=== PATIENT | female | born 1955 | race American Indian/Alaskan Native ===

== ENCOUNTER 2021-05-18 19:12 | Inpatient (IN) | payer MEDICARE ==
[2021-05-18] MEDS ORDERED: SODIUM CHLORIDE 0.9% 1000 ML 1,000 ML IV ONE ×2 (19:22→19:23)
[2021-05-18] MEDS ORDERED: ACETAMINOPHEN 500 MG TAB PO ONE (19:23)
--- NOTE | 2021-05-18 19:45 | XRay Report ---
CHEST 1 VIEW INDICATION / CLINICAL INFORMATION: Tachycardia. COMPARISON: None available. FINDINGS: SUPPORT DEVICES: None. HEART / MEDIASTINUM: No significant abnormality. LUNGS / PLEURA: No significant pulmonary or pleural abnormality. No pneumothorax. ADDITIONAL FINDINGS: No significant additional findings. IMPRESSION: 1. No acute findings. Signer Name: Saran Monson MD Signed: 05/18/2021 7:41 PM Workstation Name: [id number]
--- NOTE | 2021-05-18 19:51 | Emergency Department Report ---
HPI - General Time Seen by Provider: 05/18/21 19:19 - HPI HPI: Room 2 The patient is a 66-year-old female present with a chief complaint of weakness. The patient states for the past week she has had a cough has been nonproductive. Patient states today she just felt fatigued and EMS was called. EMS found the patient tachycardic in the 160s and believed it was PSVT. The patient was administered Versed 2 mg IV and 2 rounds of adenosine and cardioverted at 100 J by EMS prior to arrival with no change in status. In the ED the patient was found to be febrile. Patient states she has been vaccinated against Covid receiving her second [employer] vaccine well over a month ago. Patient denies dysuria nausea or vomiting ED Past Medical Hx - Past Medical History Previous Medical History?: No - Surgical History Additional Surgical History: Myomectomy - Family History Family history: no significant - Social History Smoking Status: Never Smoker Substance Use Type: Marijuana - Medications Home Medications: Home Medications Medication Instructions Recorded Confirmed Last Taken Type No Known Home Medications [No 05/18/21 05/18/21 Unknown History Reported Home Medications] ED Review of Systems ROS: Stated complaint: SVT Other details as noted in HPI Constitutional: weakness Eyes: denies: eye pain ENT: denies: throat pain Respiratory: cough Cardiovascular: denies: chest pain Endocrine: no symptoms reported Gastrointestinal: denies: abdominal pain, nausea, vomiting Genitourinary: denies: dysuria Musculoskeletal: denies: back pain Neurological: denies: headache Physical Exam - Physical Exam Physical Exam: GENERAL: The patient is well-developed well-nourished female lying on stretcher appearing fatigued but in no acute distress. [] HEENT: Normocephalic. Atraumatic. Extraocular motions are intact. Patient has moist mucous membranes. NECK: Supple. Trachea mid CHEST/LUNGS: Clear to auscultation. There is no respiratory distress noted. HEART/CARDIOVASCULAR: Regular. There is tachycardia. There is no gallop rub or murmur. ABDOMEN: Abdomen is soft, nontender. Patient has normal bowel sounds. There is no abdominal distention. SKIN: There is no rash. There is no edema. There is no diaphoresis. NEURO: The patient is awake, alert, and oriented. The patient is cooperative. The patient has no focal neurologic deficits. The patient has normal speech. GCS MUSCULOSKELETAL: There is no evidence of acute injury. ED Medical Decision Making - Lab Data Result diagrams: 05/18/21 19:37 05/18/21 19:37 Laboratory Tests 05/18/21 05/18/21 05/18/21 19:37 19:37 19:37 WBC 13.7 H RBC 5.23 H Hgb 12.3 Hct 38.9 MCV 75 L MCH 23 L MCHC 32 RDW 18.8 H Plt Count 238 Seg Neutrophils % Car Cooper PT 14.1 INR 0.98 Sodium 139 Potassium 3.7 Chloride 102.7 Carbon Dioxide 19 L Anion Gap 21 BUN 10 Creatinine 0.9 Estimated GFR > 60 BUN/Creatinine Ratio 11 Glucose 123 H Lactic Acid Calcium 8.5 Magnesium Total Creatine Kinase 101 CK-MB (CK-2) 1.4 CK-MB (CK-2) Rel Index 1.3 Troponin T 0.026 NT-Pro-B Natriuret Pep 65.93 TSH Free T4 05/18/21 05/18/21 05/18/21 19:37 19:37 19:37 WBC RBC Hgb Hct MCV MCH MCHC RDW Plt Count Seg Neutrophils % PT INR Sodium Potassium Chloride Carbon Dioxide Anion Gap BUN Creatinine Estimated GFR BUN/Creatinine Ratio Glucose Lactic Acid 3.00 H* Calcium Magnesium 1.50 L Total Creatine Kinase CK-MB (CK-2) CK-MB (CK-2) Rel Index Troponin T NT-Pro-B Natriuret Pep TSH 2.130 Free T4 1.39 - EKG Data -: EKG Interpreted by Me EKG shows normal: sinus rhythm Rate: tachycardia (155 bpm) - EKG Data When compared to previous EKG there are: previous EKG unavailable Interpretation: other (No ischemic changes seen) - Radiology Data Radiology results: report reviewed (Chest x-ray), image reviewed (Chest x-ray) interpreted by me: Chest [id number] left lower lobe atelectasis. No pneumothorax [facility] [address] [place] [address] XRay Report Signed Patient: CHRISTIANO SALEH MR#: [id number] 07 : 1955 Acct:[id number] Age/Sex: 66 / F ADM Date: 05/18/21 Loc: ED Attending Dr: Ordering Physician: PRATIMA JEFF MD Date of Service: 05/18/21 Procedure(s): XR chest 1V ap Accession Number(s): [id number] cc: PRATIMA JEFF MD Fluoro Time In Minutes: CHEST 1 VIEW INDICATION / CLINICAL INFORMATION: Tachycardia. COMPARI SON: None available. FINDINGS: SUPPORT DEVICES: None. HEART / MEDIASTINUM: No significant abnormality. LUNGS / PLEURA: No significant pulmonary or pleural abnormality. No pneumothorax. ADDITIONAL FINDINGS: No significant additional findings. IMPRESSION: 1. No acute findings. Signer Name: Saran Monson MD Signed: 05/18/2021 7:41 PM Workstation Name: [id number] Transcribed By: SB Dictated By: SARAN MONSON MD Electronically Authenticated By: SARAN MONSON MD Signed Date/Time: 05/18/211940 DD/ 40 TD/TT: - Differential Diagnosis Pneumonia, bronchitis, COVID-19, UTI, sepsis Critical care attestation.: If time is entered above; I have spent that time in minutes in the direct care of this critically ill patient, excluding procedure time. ED Disposition Clinical Impression: Sepsis, Cough Disposition: ADMITTED INPATIENT Is pt being admited?: Yes Does the pt Need Aspirin: No Condition: Fair Time of Disposition: 21:24 (Hospitalist notified (Dr. Freeman))
[2021-05-18 20:16] LABS: Hematocrit 38.9 % (30.3-42.9); Hemoglobin 12.3 gm/dl (10.1-14.3); Mean Corpuscular HGB Conc 32 % (30-34); Mean Corpuscular Volume 75 fl (79-97); Platelet Count 238 K/mm3 (140-440); Red Blood Count 5.23 M/mm3 (3.65-5.03); Red Cell Distribution Width 18.8 % (13.2-15.2)
[2021-05-18 20:29] LABS: INR 0.98 (0.87-1.13)
[2021-05-18 20:38] LABS: BUN/Creatinine Ratio 11; Blood Urea Nitrogen 10 mg/dL (7-17); Calcium 8.5 mg/dL (8.4-10.2); Hemolysis Index 41
[2021-05-18 20:50] LABS: Free T4 (Free Thyroxine) 1.39 ng/dL (0.76-1.46)
[2021-05-18 21:06] LABS: Creatine Kinase MB 1.4 ng/mL (0.0-4.0)
[2021-05-18] MEDS ORDERED: cefTRIAXone/NS 1 GM/50 ML 1 GM/50 ML BAG IV ONE (21:23)
[2021-05-18] MEDS ORDERED: AZITHROMYCIN/NS 500 MG/250 ML 500 MG/250 ML BAG IV ONE (21:23)
[2021-05-18] MEDS ORDERED: ONDANSETRON 4 MG/2 ML INJ IV PRN (21:45)
[2021-05-18] MEDS ORDERED: HYDROmorphone 1 MG/1 ML INJ IV PRN (21:45)
[2021-05-18] MEDS ORDERED: MORPHINE 2 MG/1 ML INJ IV PRN (21:45)
[2021-05-18] MEDS ORDERED: ALBUTEROL 2.5 MG/3 ML NEBU IH PRN (21:45)
[2021-05-18] MEDS ORDERED: ACETAMINOPHEN 325 MG TAB PO PRN (21:45)
--- NOTE | 2021-05-18 21:52 | History and Physical Report ---
History of Present Illness Date of examination: 05/18/21 Date of admission: 05/18/21 Chief complaint: Weakness Fever History of present illness: 66-year-old female present with a chief complaint of weakness. The patient states for the past week she has had a cough has been nonproductive. Patient states today she just felt fatigued and EMS was called. EMS found the patient tachycardic in the 160s and believed it was PSVT. The patient was administered Versed 2 mg IV and 2 rounds of adenosine and cardioverted at 100 J by EMS prior to arrival with no change in status. In the ED the patient was found to be febrile. Patient states she has been vaccinated against Covid receiving her second [employer] vaccine well over a month ago. Patient denies dysuria nausea or vomiting In the emergency room patient is found to have fever temperature is 100.9, WBC 13.7, Chest [id number] left lower lobe atelectasis. No pneumothorax. Past History Past Medical History: other (SVT) Past Surgical History: Other (Myomectomy) Social history: other (Never a smoker) Family history: no significant family history Medications and Allergies Allergies Allergy/AdvReac Type Severity Reaction Status Date / Time No Known Allergies Allergy Verified 05/18/21 19:40 Home Medications Medication Instructions Recorded Confirmed Last Taken Type No Known Home Medications [No 05/18/21 05/18/21 Unknown History Reported Home Medications] Active Meds: Active Medications Acetaminophen (Acetaminophen 325 Mg Tab) 650 mg PO Q4H PRN PRN Reason: Pain MILD(1-3)/Fever >100.5/SHELBY Albuterol (Albuterol 2.5 Mg/3 Ml Nebu) 2.5 mg IH Q3HRT PRN PRN Reason: Shortness Of Breath Albuterol/Ipratropium (Ipratropium/Albuterol Sulfate 3 Ml Ampul.Neb) 1 ampul IH Q6HRT LETY Famotidine (Famotidine 20 Mg Tab) 20 mg PO BID LETY Azithromycin (Zithromax/Ns) 500 mg in 250 mls @ 250 mls/hr IV ONCE ONE; Protocol Stop: 05/18/21 22:22 Ceftriaxone Sodium (Rocephin/Ns 1 Gm/50 Ml) 1 gm in 50 mls @ 100 mls/hr IV ONCE ONE; Protocol Stop: 05/18/21 21:52 Dextrose/Sodium Chloride (D5/0.45ns) 1,000 mls @ 100 mls/hr IV DIRECT LETY Ondansetron HCl (Ondansetron 4 Mg/2 Ml Inj) 4 mg IV Q8H PRN PRN Reason: Nausea And Vomiting Sodium Chloride (Sodium Chloride 0.9% 10 Ml Flush Syringe) 10 ml IV BID LETY Sodium Chloride (Sodium Chloride 0.9% 10 Ml Flush Syringe) 10 ml IV PRN PRN PRN Reason: LINE FLUSH Review of Systems Constitutional: fever, weakness, malaise Exam - Constitutional Vitals: Temp Pulse Resp BP Pulse Ox 100.9 F H 125 H 20 109/68 98 05/18/21 20:50 05/18/21 21:12 05/18/21 21:12 05/18/21 21:12 05/18/21 21:12 General appearance: Present: no acute distress, well-nourished - EENT Eyes: Present: PERRL ENT: hearing intact, clear oral mucosa - Neck Neck: Present: supple, normal ROM - Respiratory Respiratory effort: normal Respiratory: bilateral: CTA - Cardiovascular Heart Sounds: Present: S1 & S2. Absent: rub, click - Extremities Extremities: pulses symmetrical, No edema Peripheral Pulses: within normal limits - Abdominal General gastrointestinal: Present: soft, non-tender, non-distended, normal bowel sounds Female genitourinary: Present: normal - Integumentary Integumentary: Present: clear, warm, dry - Musculoskeletal Musculoskeletal: gait normal, strength equal bilaterally - Psychiatric Psychiatric: appropriate mood/affect, intact judgment & insight - Neurologic Neurologic: CNII-XII intact, moves all extremities HEART Score - HEART Score Troponin: Troponin T 0.026 ng/mL (0.00-0.029) 05/18/21 19:37 Results - Labs CBC & Chem 7: 05/18/21 19:37 05/18/21 19:37 Labs: Laboratory Last Values WBC 13.7 K/mm3 (4.5-11.0) H 05/18/21 19:37 RBC 5.23 M/mm3 (3.65-5.03) H 05/18/21 19:37 Hgb 12.3 gm/dl (10.1-14.3) 05/18/21 19:37 Hct 38.9 % (30.3-42.9) 05/18/21 19:37 MCV 75 fl (79-97) L 05/18/21 19:37 MCH 23 pg (28-32) L 05/18/21 19:37 MCHC 32 % (30-34) 05/18/21 19:37 RDW 18.8 % (13.2-15.2) H 05/18/21 19:37 Plt Count 238 K/mm3 (140-440) 05/18/21 19:37 Seg Neutrophils % Air Deodorizer Servicer 05/18/21 19:37 PT 14.1 Sec. (12.2-14.9) 05/18/21 19:37 INR 0.98 (0.87-1.13) 05/18/21 19:37 Sodium 139 mmol/L (137-145) 05/18/21 19:37 Potassium 3.7 mmol/L (3.6-5.0) 05/18/21 19:37 Chloride 102.7 mmol/L (98-107) 05/18/21 19:37 Carbon Dioxide 19 mmol/L (22-30) L 05/18/21 19:37 Anion Gap 21 mmol/L 05/18/21 19:37 BUN 10 mg/dL (7-17) 05/18/21 19:37 Creatinine 0.9 mg/dL (0.6-1.2) 05/18/21 19:37 Estimated GFR > 60 ml/min 05/18/21 19:37 BUN/Creatinine Ratio 11 % 05/18/21 19:37 Glucose 123 mg/dL (65-100) H 05/18/21 19:37 Lactic Acid 3.00 mmol/L (0.7-2.0) H* 05/18/21 19:37 Calcium 8.5 mg/dL (8.4-10.2) 05/18/21 19:37 Magnesium 1.50 mg/dL (1.7-2.3) L 05/18/21 19:37 Total Creatine Kinase 101 units/L (30-135) 05/18/21 19:37 CK-MB (CK-2) 1.4 ng/mL (0.0-4.0) 05/18/21 19:37 CK-MB (CK-2) Rel Index 1.3 (0-4) 05/18/21 19:37 Troponin T 0.026 ng/mL (0.00-0.029) 05/18/21 19:37 NT-Pro-B Natriuret Pep 65.93 pg/mL (0-900) 05/18/21 19:37 TSH 2.130 mlU/mL (0.270-4.200) 05/18/21 19:37 Free T4 1.39 ng/dL (0.76-1.46) 05/18/21 19:37 - Imaging and Cardiology Chest x-ray: report reviewed Assessment and Plan VTE prophylaxis?: Chemical Plan of care discussed with patient/family: Yes - Patient Problems (1) Sepsis Current Visit: Yes Status: Acute Plan to address problem: Admit the patient to the medical floor. D5 half-normal saline at the rate of 100 cc/h. Rocephin 2 g IV daily. Zithromax 500 mg p.o. daily. Blood cultures sputum culture urine culture. Recheck CBC BMP in the morning. Recheck lactic acid in 4 hours (2) Pneumonia Current Visit: Yes Status: Acute Plan to address problem: Rocephin 2 g IV daily. Zithromax 500 mg p.o. daily. Blood cultures sputum culture urine culture. Recheck CBC BMP in the morning. Recheck lactic acid in 4 hours (3) Cough Current Visit: Yes Status: Acute Plan to address problem: Robitussin-DM 10 mL p.o. every 6 hours as needed. DuoNeb by nebulizer every 4 hours (4) DVT prophylaxis Current Visit: Yes Status: Acute Plan to address problem: Heparin 5000 units subcu every 12 hours for DVT prophylaxis. Pepcid 20 mg p.o. twice daily for GI prophylaxis. Patient is a full code
[2021-05-18 22:30] LABS: Bacteria,Urine 1+ /HPF (Negative); Bilirubin,Urine NEG (Negative); Blood,Urine MOD (Negative); Color,Urine Red (Yellow); Mucus,Urine FEW /HPF; Urobilinogen,Urine < 2.0 mg/dL (<2.0)
[2021-05-18 22:35] LABS: RBC,Urine > 182.0 /HPF (0.0-6.0)
[2021-05-18] MEDS: FAMOTIDINE 20 MG TAB PO SCH (22:44)
[2021-05-18] MEDS: HEPARIN 5,000 UNIT/1 ML VIAL SUB-Q SCH (22:44)
[2021-05-18 23:35] LABS: Basophils % (Manual) 0 % (0.0-1.8); Total Cells Counted 100
[2021-05-18 23:36] LABS: Anisocytosis 1+; Platelet Estimate Consistent w Auto
[2021-05-18] MEDS: D5W/0.45% NACL 1,000 ML IV SCH (23:51)
[2021-05-19] MEDS: IPRATROPIUM/ALBUTEROL SULFATE 3 ML AMPUL.NEB IH SCH ×3 (03:27→15:27)
[2021-05-19 05:10] LABS: BUN/Creatinine Ratio 12; Blood Urea Nitrogen 12 mg/dL (7-17); Calcium 8.1 mg/dL (8.4-10.2); Hemolysis Index 1
[2021-05-19 05:52] LABS: Hematocrit 33.9 % (30.3-42.9); Hemoglobin 10.5 gm/dl (10.1-14.3); Mean Corpuscular HGB Conc 31 % (30-34); Mean Corpuscular Volume 76 fl (79-97); Platelet Count 203 K/mm3 (140-440); Red Blood Count 4.49 M/mm3 (3.65-5.03); Red Cell Distribution Width 18.9 % (13.2-15.2)
[2021-05-19] MEDS ORDERED: POTASSIUM CHLORIDE ER 20 MEQ TAB PO ONE (06:01)
[2021-05-19 07:02] LABS: Band Neutrophils # (Manual) 0.7 K/mm3; Basophils % (Manual) 0.5 % (0.0-1.8); Eosinophils % (Manual) 0.5 % (0.0-4.3); Monocytes % (Manual) 2.5 % (0.0-7.3); Total Cells Counted 200
[2021-05-19 07:04] LABS: Anisocytosis 1+; Platelet Estimate Consistent w Auto
[2021-05-19] MEDS: FAMOTIDINE 20 MG TAB PO SCH ×2 (09:17→22:03)
[2021-05-19] MEDS ORDERED: AZITHROMYCIN 250 MG TAB PO SCH (10:00)
[2021-05-19] MEDS ORDERED: cefTRIAXone/NS 2 GM/100 ML 2 GM/100 ML BAG IV SCH (10:00)
--- NOTE | 2021-05-19 10:29 | Progress Note ---
Assessment and Plan Assessment and plan: #Sepsis secondary to acute cystitis with hematuria #Gram negative anju bacteremia #Leukocytosisworsening #Lactic acidosis Urinalysis revealing moderate leukocyte esterase, WBC 137, RBC >182, bacteria 1+ WBC 13.7--> 23.3 Lactic acid 3.0. Pending repeat. Pending urine culture and blood cultures Status post IV fluid resuscitation in ED with 2 L normal saline Discontinued azithromycin 500 mg daily and ceftriaxone 2 g daily; starting cefepime 1g every 8 hours for increased antibiotic coverage in the setting of worsenig leukocytosis Infectious disease consulted; pending recs #Abnormal uterine bleeding - patient endorsing vaginal bleeding over the last 3 years despite being postmenopausal - counseled patient about following up with Gynecology upon discharge #Obesity #Weight loss counseling #Exercise counseling - counseled patient about the importance of dietary changes, weight loss, and incorporating exercise - Time: +15 min #Advanced care planning -Disease education conducted, care plan discussed, diagnoses discussed, prognosis discussed, and patient acknowledges understanding with care plan -Time: +30 min Disposition Plan: Continue medical management Total Time Spent with Patient (Minutes): 30 minutes History Interval history: No acute events overnight. Hospitalist Physical - Constitutional Vitals: Temp Pulse Resp BP Pulse Ox 100.9 F H 116 H 20 103/59 97 05/18/21 20:50 05/18/21 22:45 05/19/21 01:13 05/18/21 22:45 05/19/21 01:13 General appearance: Present: no acute distress, well-nourished, obese - EENT Eyes: Present: PERRL, EOM intact ENT: hearing intact, clear oral mucosa, dentition normal - Neck Neck: Present: supple, normal ROM - Respiratory Respiratory effort: normal Respiratory: bilateral: CTA - Cardiovascular Rhythm: regular Heart Sounds: Present: S1 & S2 - Extremities Extremities: no ischemia, pulses intact, pulses symmetrical, No edema, normal temperature, normal color Peripheral Pulses: within normal limits - Abdominal General gastrointestinal: soft, non-tender, non-distended, normal bowel sounds - Integumentary Integumentary: Present: clear, warm, dry - Psychiatric Psychiatric: appropriate mood/affect, intact judgment & insight, memory intact, cooperative - Neurologic Neurologic: CNII-XII intact, moves all extremities - Allied Health Allied health notes reviewed: nursing HEART Score - HEART Score Troponin: Troponin T 0.026 ng/mL (0.00-0.029) 05/18/21 19:37 Results - Labs CBC & Chem 7: 05/19/21 04:34 05/19/21 04:34 Labs: Laboratory Last Values WBC 23.3 K/mm3 (4.5-11.0) H 05/19/21 04:34 RBC 4.49 M/mm3 (3.65-5.03) 05/19/21 04:34 Hgb 10.5 gm/dl (10.1-14.3) 05/19/21 04:34 Hct 33.9 % (30.3-42.9) 05/19/21 04:34 MCV 76 fl (79-97) L 05/19/21 04:34 MCH 24 pg (28-32) L 05/19/21 04:34 MCHC 31 % (30-34) 05/19/21 04:34 RDW 18.9 % (13.2-15.2) H 05/19/21 04:34 Plt Count 203 K/mm3 (140-440) 05/19/21 04:34 Add Manual Diff Complete 05/19/21 04:34 Total Counted 200 05/19/21 04:34 Seg Neutrophils % Wine Cellar Worker 05/19/21 04:34 Seg Neuts % (Manual) 92.0 % (40.0-70.0) H 05/19/21 04:34 Band Neutrophils % 3.0 % 05/19/21 04:34 Lymphocytes % (Manual) 1.5 % (13.4-35.0) L 05/19/21 04:34 Reactive Lymphs % (Man) 0 % 05/19/21 04:34 Monocytes % (Manual) 2.5 % (0.0-7.3) 05/19/21 04:34 Eosinophils % (Manual) 0.5 % (0.0-4.3) 05/19/21 04:34 Basophils % (Manual) 0.5 % (0.0-1.8) 05/19/21 04:34 Metamyelocytes % 0 % 05/19/21 04:34 Myelocytes % 0 % 05/19/21 04:34 Promyelocytes % 0 % 05/19/21 04:34 Blast Cells % 0 % 05/19/21 04:34 Nucleated RBC % Not Reportable 05/19/21 04:34 Seg Neutrophils # Man 21.4 K/mm3 (1.8-7.7) H 05/19/21 04:34 Band Neutrophils # 0.7 K/mm3 05/19/21 04:34 Lymphocytes # (Manual) 0.3 K/mm3 (1.2-5.4) L 05/19/21 04:34 Abs React Lymphs (Man) 0.0 K/mm3 05/19/21 04:34 Monocytes # (Manual) 0.6 K/mm3 (0.0-0.8) 05/19/21 04:34 Eosinophils # (Manual) 0.1 K/mm3 (0.0-0.4) 05/19/21 04:34 Basophils # (Manual) 0.1 K/mm3 (0.0-0.1) 05/19/21 04:34 Metamyelocytes # 0.0 K/mm3 05/19/21 04:34 Myelocytes # 0.0 K/mm3 05/19/21 04:34 Promyelocytes # 0.0 K/mm3 05/19/21 04:34 Blast Cells # 0.0 K/mm3 05/19/21 04:34 WBC Morphology Not Reportable 05/19/21 04:34 Hypersegmented Neuts Not Reportable 05/19/21 04:34 Hyposegmented Neuts Not Reportable 05/19/21 04:34 Hypogranular Neuts Not Reportable 05/19/21 04:34 Smudge Cells Not Reportable 05/19/21 04:34 Toxic Granulation Not Reportable 05/19/21 04:34 Toxic Vacuolation Not Reportable 05/19/21 04:34 Dohle Bodies Not Reportable 05/19/21 04:34 Pelger-Huet Anomaly Not Reportable 05/19/21 04:34 Mario Rods Not Reportable 05/19/21 04:34 Platelet Estimate Consistent w auto 05/19/21 04:34 Clumped Platelets Not Reportable 05/19/21 04:34 Plt Clumps, EDTA Not Reportable 05/19/21 04:34 Large Platelets Not Reportable 05/19/21 04:34 Giant Platelets Not Reportable 05/19/21 04:34 Platelet Satelliting Not Reportable 05/19/21 04:34 Plt Morphology Comment Not Reportable 05/19/21 04:34 RBC Morphology Not Reportable 05/19/21 04:34 Dimorphic RBCs Not Reportable 05/19/21 04:34 Polychromasia Not Reportable 05/19/21 04:34 Hypochromasia Not Reportable 05/19/21 04:34 Poikilocytosis Not Reportable 05/19/21 04:34 Anisocytosis 1+ 05/19/21 04:34 Microcytosis Not Reportable 05/19/21 04:34 Macrocytosis Not Reportable 05/19/21 04:34 Spherocytes Not Reportable 05/19/21 04:34 Pappenheimer Bodies Not Reportable 05/19/21 04:34 Sickle Cells Not Reportable 05/19/21 04:34 Target Cells Not Reportable 05/19/21 04:34 Tear Drop Cells Not Reportable 05/19/21 04:34 Ovalocytes Not Reportable 05/19/21 04:34 Helmet Cells Not Reportable 05/19/21 04:34 [place] Bodies Not Reportable 05/19/21 04:34 [place] Rings Not Reportable 05/19/21 04:34 [place] Cells Not Reportable 05/19/21 04:34 Bite Cells Not Reportable 05/19/21 04:34 Crenated Cell Not Reportable 05/19/21 04:34 Elliptocytes Not Reportable 05/19/21 04:34 Acanthocytes (Spur) Not Reportable 05/19/21 04:34 Rouleaux Not Reportable 05/19/21 04:34 Hemoglobin C Crystals Not Reportable 05/19/21 04:34 Schistocytes Not Reportable 05/19/21 04:34 Malaria parasites Not Reportable 05/19/21 04:34 Adam Bodies Not Reportable 05/19/21 04:34 Hem Pathologist Commnt No 05/19/21 04:34 PT 14.1 Sec. (12.2-14.9) 05/18/21 19:37 INR 0.98 (0.87-1.13) 05/18/21 19:37 Sodium 140 mmol/L (137-145) 05/19/21 04:34 Potassium 3.0 mmol/L (3.6-5.0) L 05/19/21 04:34 Chloride 104.3 mmol/L (98-107) 05/19/21 04:34 Carbon Dioxide 21 mmol/L (22-30) L 05/19/21 04:34 Anion Gap 18 mmol/L 05/19/21 04:34 BUN 12 mg/dL (7-17) 05/19/21 04:34 Creatinine 1.0 mg/dL (0.6-1.2) 05/19/21 04:34 Estimated GFR > 60 ml/min 05/19/21 04:34 BUN/Creatinine Ratio 12 % 05/19/21 04:34 Glucose 99 mg/dL (65-100) 05/19/21 04:34 Lactic Acid 3.00 mmol/L (0.7-2.0) H* 05/18/21 19:37 Calcium 8.1 mg/dL (8.4-10.2) L 05/19/21 04:34 Magnesium 1.50 mg/dL (1.7-2.3) L 05/18/21 19:37 Total Creatine Kinase 101 units/L (30-135) 05/18/21 19:37 CK-MB (CK-2) 1.4 ng/mL (0.0-4.0) 05/18/21 19:37 CK-MB (CK-2) Rel Index 1.3 (0-4) 05/18/21 19:37 Troponin T 0.026 ng/mL (0.00-0.029) 05/18/21 19:37 NT-Pro-B Natriuret Pep 65.93 pg/mL (0-900) 05/18/21 19:37 TSH 2.130 mlU/mL (0.270-4.200) 05/18/21 19:37 Free T4 1.39 ng/dL (0.76-1.46) 05/18/21 19:37 Urine Color Red (Yellow) 05/18/21 21:53 Urine Turbidity Cloudy (Clear) 05/18/21 21:53 Urine pH 5.0 (5.0-7.0) 05/18/21 21:53 Ur Specific [place] 1.015 (1.003-1.030) 05/18/21 21:53 Urine Protein 100 mg/dl mg/dL (Negative) 05/18/21 21:53 Urine Glucose (UA) Neg mg/dL (Negative) 05/18/21 21:53 Urine Ketones Neg mg/dL (Negative) 05/18/21 21:53 Urine Blood Mod (Negative) 05/18/21 21:53 Urine Nitrite Neg (Negative) 05/18/21 21:53 Urine Bilirubin Neg (Negative) 05/18/21 21:53 Urine Urobilinogen < 2.0 mg/dL (<2.0) 05/18/21 21:53 Ur Leukocyte Esterase Mod (Negative) 05/18/21 21:53 Urine WBC (Auto) 137.0 /HPF (0.0-6.0) H 05/18/21 21:53 Urine RBC (Auto) > 182.0 /HPF (0.0-6.0) 05/18/21 21:53 U Epithel Cells (Auto) 1.0 /HPF (0-13.0) 05/18/21 21:53 Urine Bacteria (Auto) 1+ /HPF (Negative) 05/18/21 21:53 Urine Mucus Few /HPF 05/18/21 21:53 Microbiology: Microbiology 05/18/21 20:29 Peripheral/Venous Blood Culture - Preliminary Culture in Progress 05/18/21 19:37 Peripheral/Venous Blood Culture - Preliminary Culture in Progress Pollard/IV: Voiding Method Toilet Active Medications - Current Medications Current Medications: Generic Name Dose Route Start Last Admin Trade Name Freq PRN Reason Stop Dose Admin Acetaminophen 650 mg 05/18/21 21:45 Acetaminophen 325 Mg Tab PO Q4H PRN Pain MILD(1-3)/Fever >100.5/SHELBY Albuterol 2.5 mg 05/18/21 21:45 Albuterol 2.5 Mg/3 Ml Nebu IH Q3HRT PRN Shortness Of Breath Albuterol/Ipratropium 1 ampul 05/19/21 03:00 Ipratropium/Albuterol Sulfate 3 Ml Ampul.Neb IH Q6HRT LETY Azithromycin 500 mg 05/19/21 10:00 05/19/21 09:17 Azithromycin 250 Mg Tab PO 500 mg QDAY LETY Administration Protocol Famotidine 20 mg 05/18/21 22:00 05/19/21 09:17 Famotidine 20 Mg Tab PO 20 mg BID LETY Administration Heparin Sodium (Porcine) 5,000 unit 05/18/21 22:00 05/18/21 22:44 Heparin 5,000 Unit/1 Ml Vial SUB-Q 5,000 unit Q12HR LETY Administration Hydromorphone HCl 0.5 mg 05/18/21 21:45 Hydromorphone 1 Mg/1 Ml Inj IV Q3H PRN Pain , Severe (7-10) Dextrose/Sodium Chloride 1,000 mls @ 100 mls/hr 05/18/21 22:00 05/18/21 23:51 D5/0.45ns IV 100 mls/hr DIRECT LETY Administration Ceftriaxone Sodium 2 gm in 100 mls @ 200 mls/hr 05/19/21 10:00 05/19/21 09:17 Rocephin/Ns 2 Gm/100 Ml IV 200 mls/hr Q24H LETY Administration Protocol Morphine Sulfate 2 mg 05/18/21 21:45 Morphine 2 Mg/1 Ml Inj IV Q4H PRN Pain, Moderate (4-6) Ondansetron HCl 4 mg 05/18/21 21:45 Ondansetron 4 Mg/2 Ml Inj IV Q8H PRN Nausea And Vomiting Sodium Chloride 10 ml 05/18/21 22:00 05/19/21 09:18 Sodium Chloride 0.9% 10 Ml Flush Syringe IV 10 ml BID LETY Administration Sodium Chloride 10 ml 05/18/21 21:45 Sodium Chloride 0.9% 10 Ml Flush Syringe IV PRN PRN LINE FLUSH
[2021-05-19] MEDS: HEPARIN 5,000 UNIT/1 ML VIAL SUB-Q SCH ×2 (12:33→22:04)
[2021-05-19] MEDS: D5W/0.45% NACL 1,000 ML IV SCH (15:01)
[2021-05-20] MEDS: D5W/0.45% NACL 1,000 ML IV SCH (02:38)
[2021-05-20 07:10] LABS: Basophils % (Auto) 0.4 % (0.0-1.8); Eosinophils # (Auto) 0.1 K/mm3 (0.0-0.4); Eosinophils % (Auto) 0.9 % (0.0-4.3); Hematocrit 30.3 % (30.3-42.9); Hemoglobin 9.5 gm/dl (10.1-14.3); Lymphocytes # (Auto) 0.6 K/mm3 (1.2-5.4); Lymphocytes % (Auto) 5.6 % (13.4-35.0); Mean Corpuscular HGB Conc 32 % (30-34); Mean Corpuscular Volume 75 fl (79-97); Monocytes # (Auto) 1.2 K/mm3 (0.0-0.8); Monocytes % (Auto) 10.3 % (0.0-7.3); Platelet Count 163 K/mm3 (140-440); Red Blood Count 4.05 M/mm3 (3.65-5.03); Red Cell Distribution Width 18.9 % (13.2-15.2)
[2021-05-20 07:27] LABS: BUN/Creatinine Ratio 9; Blood Urea Nitrogen 7 mg/dL (7-17); Calcium 7.9 mg/dL (8.4-10.2); Hemolysis Index 7
[2021-05-20] MEDS ORDERED: POTASSIUM CHLORIDE ER 20 MEQ TAB PO NR ×2 (08:30→12:30)
[2021-05-20] MEDS: POTASSIUM CHLORIDE 10 MEQ 10 MEQ/100 ML BAG IV SCH ×4 (08:59→13:34)
[2021-05-20] MEDS: HEPARIN 5,000 UNIT/1 ML VIAL SUB-Q SCH ×2 (09:05→21:43)
[2021-05-20] MEDS: FAMOTIDINE 20 MG TAB PO SCH ×2 (09:05→21:43)
[2021-05-20] MEDS: CEFEPIME/NS 1 GM/100 ML 1 GM/100 ML BAG IV SCH ×2 (09:07→16:51)
[2021-05-20] MEDS: IPRATROPIUM/ALBUTEROL SULFATE 3 ML AMPUL.NEB IH SCH ×4 (09:48→20:12)
--- NOTE | 2021-05-20 10:52 | Electrocardiograph Report ---
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
--- NOTE | 2021-05-20 11:18 | Progress Note ---
Assessment and Plan Assessment and plan: #Sepsis secondary to acute cystitis with hematuria #Gram negative anju bacteremia #Leukocytosisimproving #Lactic acidosis Urinalysis revealing moderate leukocyte esterase, WBC 137, RBC >182, bacteria 1+ WBC 13.7--> 23.3--> 11.4 Lactic acid 3.0. Pending repeat. Pending urine culture and blood cultures Status post IV fluid resuscitation in ED with 2 L normal saline Discontinued azithromycin 500 mg daily and ceftriaxone 2 g daily; starting cefepime 1g every 8 hours for increased antibiotic coverage in the setting of worsenig leukocytosis Infectious disease consulted; pending recs #Abnormal uterine bleeding - patient endorsing vaginal bleeding over the last 3 years despite being postmenopausal - counseled patient about following up with Gynecology upon discharge #Obesity #Weight loss counseling #Exercise counseling - counseled patient about the importance of dietary changes, weight loss, and incorporating exercise - Time: +15 min #Advanced care planning -Disease education conducted, care plan discussed, diagnoses discussed, prognosis discussed, and patient acknowledges understanding with care plan -Time: +30 min #Discharge planning - Patient is pending improvement in vital status and final antibiotic choice - Case management has been made aware. - Discharge is tentatively 24-48 hours Disposition Plan: Continue medical management Total Time Spent with Patient (Minutes): 30 minutes History Interval history: Patient was febrile to 100.5 last night. Hospitalist Physical - Constitutional Vitals: Temp Pulse Resp BP Pulse Ox 100.5 F H 102 H 20 107/58 97 05/20/21 04:30 05/20/21 10:24 05/20/21 10:24 05/20/21 04:30 05/20/21 10:00 General appearance: Present: no acute distress, well-nourished, obese - EENT Eyes: Present: PERRL, EOM intact ENT: hearing intact, clear oral mucosa, dentition normal - Neck Neck: Present: supple, normal ROM - Respiratory Respiratory effort: normal Respiratory: bilateral: CTA - Cardiovascular Rhythm: regular Heart Sounds: Present: S1 & S2 - Extremities Extremities: no ischemia, pulses intact, pulses symmetrical, No edema, normal temperature, normal color, Full ROM Peripheral Pulses: within normal limits - Abdominal General gastrointestinal: soft, non-tender, non-distended, normal bowel sounds - Integumentary Integumentary: Present: clear, warm, dry - Psychiatric Psychiatric: appropriate mood/affect, intact judgment & insight, memory intact, cooperative - Neurologic Neurologic: CNII-XII intact, moves all extremities - Allied Health Allied health notes reviewed: nursing HEART Score - HEART Score Troponin: Troponin T 0.026 ng/mL (0.00-0.029) 05/18/21 19:37 Results - Labs CBC & Chem 7: 05/20/21 06:51 03 06:51 Labs: Laboratory Last Values WBC 11.4 K/mm3 (4.5-11.0) H 05/20/21 06:51 RBC 4.05 M/mm3 (3.65-5.03) 05/20/21 06:51 Hgb 9.5 gm/dl (10.1-14.3) L 05/20/21 06:51 Hct 30.3 % (30.3-42.9) 05/20/21 06:51 MCV 75 fl (79-97) L 05/20/21 06:51 MCH 24 pg (28-32) L 05/20/21 06:51 MCHC 32 % (30-34) 05/20/21 06:51 RDW 18.9 % (13.2-15.2) H 05/20/21 06:51 Plt Count 163 K/mm3 (140-440) 05/20/21 06:51 Lymph % (Auto) 5.6 % (13.4-35.0) L 05/20/21 06:51 [place] % (Auto) 10.3 % (0.0-7.3) H 05/20/21 06:51 Eos % (Auto) 0.9 % (0.0-4.3) 05/20/21 06:51 Baso % (Auto) 0.4 % (0.0-1.8) 05/20/21 06:51 Lymph # (Auto) 0.6 K/mm3 (1.2-5.4) L 05/20/21 06:51 [place] # (Auto) 1.2 K/mm3 (0.0-0.8) H 05/20/21 06:51 Eos # (Auto) 0.1 K/mm3 (0.0-0.4) 05/20/21 06:51 Baso # (Auto) 0.0 K/mm3 (0.0-0.1) 05/20/21 06:51 Add Manual Diff Complete 05/19/21 04:34 Total Counted 200 05/19/21 04:34 Seg Neutrophils % 82.8 % (40.0-70.0) H 05/20/21 06:51 Seg Neuts % (Manual) 92.0 % (40.0-70.0) H 05/19/21 04:34 Band Neutrophils % 3.0 % 05/19/21 04:34 Lymphocytes % (Manual) 1.5 % (13.4-35.0) L 05/19/21 04:34 Reactive Lymphs % (Man) 0 % 05/19/21 04:34 Monocytes % (Manual) 2.5 % (0.0-7.3) 05/19/21 04:34 Eosinophils % (Manual) 0.5 % (0.0-4.3) 05/19/21 04:34 Basophils % (Manual) 0.5 % (0.0-1.8) 05/19/21 04:34 Metamyelocytes % 0 % 05/19/21 04:34 Myelocytes % 0 % 05/19/21 04:34 Promyelocytes % 0 % 05/19/21 04:34 Blast Cells % 0 % 05/19/21 04:34 Nucleated RBC % Not Reportable 05/19/21 04:34 Seg Neutrophils # 9.5 K/mm3 (1.8-7.7) H 05/20/21 06:51 Seg Neutrophils # Man 21.4 K/mm3 (1.8-7.7) H 05/19/21 04:34 Band Neutrophils # 0.7 K/mm3 05/19/21 04:34 Lymphocytes # (Manual) 0.3 K/mm3 (1.2-5.4) L 05/19/21 04:34 Abs React Lymphs (Man) 0.0 K/mm3 05/19/21 04:34 Monocytes # (Manual) 0.6 K/mm3 (0.0-0.8) 05/19/21 04:34 Eosinophils # (Manual) 0.1 K/mm3 (0.0-0.4) 05/19/21 04:34 Basophils # (Manual) 0.1 K/mm3 (0.0-0.1) 05/19/21 04:34 Metamyelocytes # 0.0 K/mm3 05/19/21 04:34 Myelocytes # 0.0 K/mm3 05/19/21 04:34 Promyelocytes # 0.0 K/mm3 05/19/21 04:34 Blast Cells # 0.0 K/mm3 05/19/21 04:34 WBC Morphology Not Reportable 05/19/21 04:34 Hypersegmented Neuts Not Reportable 05/19/21 04:34 Hyposegmented Neuts Not Reportable 05/19/21 04:34 Hypogranular Neuts Not Reportable 05/19/21 04:34 Smudge Cells Not Reportable 05/19/21 04:34 Toxic Granulation Not Reportable 05/19/21 04:34 Toxic Vacuolation Not Reportable 05/19/21 04:34 Dohle Bodies Not Reportable 05/19/21 04:34 Pelger-Huet Anomaly Not Reportable 05/19/21 04:34 Mario Rods Not Reportable 05/19/21 04:34 Platelet Estimate Consistent w auto 05/19/21 04:34 Clumped Platelets Not Reportable 05/19/21 04:34 Plt Clumps, EDTA Not Reportable 05/19/21 04:34 Large Platelets Not Reportable 05/19/21 04:34 Giant Platelets Not Reportable 05/19/21 04:34 Platelet Satelliting Not Reportable 05/19/21 04:34 Plt Morphology Comment Not Reportable 05/19/21 04:34 RBC Morphology Not Reportable 05/19/21 04:34 Dimorphic RBCs Not Reportable 05/19/21 04:34 Polychromasia Not Reportable 05/19/21 04:34 Hypochromasia Not Reportable 05/19/21 04:34 Poikilocytosis Not Reportable 05/19/21 04:34 Anisocytosis 1+ 05/19/21 04:34 Microcytosis Not Reportable 05/19/21 04:34 Macrocytosis Not Reportable 05/19/21 04:34 Spherocytes Not Reportable 05/19/21 04:34 Pappenheimer Bodies Not Reportable 05/19/21 04:34 Sickle Cells Not Reportable 05/19/21 04:34 Target Cells Not Reportable 05/19/21 04:34 Tear Drop Cells Not Reportable 05/19/21 04:34 Ovalocytes Not Reportable 05/19/21 04:34 Helmet Cells Not Reportable 05/19/21 04:34 [place] Bodies Not Reportable 05/19/21 04:34 [place] Rings Not Reportable 05/19/21 04:34 [place] Cells Not Reportable 05/19/21 04:34 Bite Cells Not Reportable 05/19/21 04:34 Crenated Cell Not Reportable 05/19/21 04:34 Elliptocytes Not Reportable 05/19/21 04:34 Acanthocytes (Spur) Not Reportable 05/19/21 04:34 Rouleaux Not Reportable 05/19/21 04:34 Hemoglobin C Crystals Not Reportable 05/19/21 04:34 Schistocytes Not Reportable 05/19/21 04:34 Malaria parasites Not Reportable 05/19/21 04:34 Adam Bodies Not Reportable 05/19/21 04:34 Hem Pathologist Commnt No 05/19/21 04:34 PT 14.1 Sec. (12.2-14.9) 05/18/21 19:37 INR 0.98 (0.87-1.13) 05/18/21 19:37 Sodium 140 mmol/L (137-145) 05/20/21 06:51 Potassium 2.9 mmol/L (3.6-5.0) L* 05/20/21 06:51 Chloride 106.5 mmol/L (98-107) 05/20/21 06:51 Carbon Dioxide 22 mmol/L (22-30) 05/20/21 06:51 Anion Gap 14 mmol/L 05/20/21 06:51 BUN 7 mg/dL (7-17) 05/20/21 06:51 Creatinine 0.8 mg/dL (0.6-1.2) 05/20/21 06:51 Estimated GFR > 60 ml/min 05/20/21 06:51 BUN/Creatinine Ratio 9 % 05/20/21 06:51 Glucose 136 mg/dL (65-100) H 05/20/21 06:51 Lactic Acid 3.00 mmol/L (0.7-2.0) H* 05/18/21 19:37 Calcium 7.9 mg/dL (8.4-10.2) L 05/20/21 06:51 Magnesium 1.50 mg/dL (1.7-2.3) L 05/18/21 19:37 Total Creatine Kinase 101 units/L (30-135) 05/18/21 19:37 CK-MB (CK-2) 1.4 ng/mL (0.0-4.0) 05/18/21 19:37 CK-MB (CK-2) Rel Index 1.3 (0-4) 05/18/21 19:37 Troponin T 0.026 ng/mL (0.00-0.029) 05/18/21 19:37 NT-Pro-B Natriuret Pep 65.93 pg/mL (0-900) 05/18/21 19:37 TSH 2.130 mlU/mL (0.270-4.200) 05/18/21 19:37 Free T4 1.39 ng/dL (0.76-1.46) 05/18/21 19:37 Urine Color Red (Yellow) 05/18/21 21:53 Urine Turbidity Cloudy (Clear) 05/18/21 21:53 Urine pH 5.0 (5.0-7.0) 05/18/21 21:53 Ur Specific [place] 1.015 (1.003-1.030) 05/18/21 21:53 Urine Protein 100 mg/dl mg/dL (Negative) 05/18/21 21:53 Urine Glucose (UA) Neg mg/dL (Negative) 05/18/21 21:53 Urine Ketones Neg mg/dL (Negative) 05/18/21 21:53 Urine Blood Mod (Negative) 05/18/21 21:53 Urine Nitrite Neg (Negative) 05/18/21 21:53 Urine Bilirubin Neg (Negative) 05/18/21 21:53 Urine Urobilinogen < 2.0 mg/dL (<2.0) 05/18/21 21:53 Ur Leukocyte Esterase Mod (Negative) 05/18/21 21:53 Urine WBC (Auto) 137.0 /HPF (0.0-6.0) H 05/18/21 21:53 Urine RBC (Auto) > 182.0 /HPF (0.0-6.0) 05/18/21 21:53 U Epithel Cells (Auto) 1.0 /HPF (0-13.0) 05/18/21 21:53 Urine Bacteria (Auto) 1+ /HPF (Negative) 05/18/21 21:53 Urine Mucus Few /HPF 05/18/21 21:53 Microbiology: Microbiology 05/18/21 20:29 Peripheral/Venous Blood Culture - Preliminary 05/18/21 19:37 Peripheral/Venous Blood Culture - Preliminary Pollard/IV: Voiding Method Toilet Active Medications - Current Medications Current Medications: Generic Name Dose Route Start Last Admin Trade Name Freq PRN Reason Stop Dose Admin Acetaminophen 650 mg 05/18/21 21:45 05/20/21 04:44 Acetaminophen 325 Mg Tab PO 650 mg Q4H PRN Administration Pain MILD(1-3)/Fever >100.5/SHELBY Albuterol 2.5 mg 05/18/21 21:45 Albuterol 2.5 Mg/3 Ml Nebu IH Q3HRT PRN Shortness Of Breath Albuterol/Ipratropium 1 ampul 05/19/21 03:00 05/20/21 10:24 Ipratropium/Albuterol Sulfate 3 Ml Ampul.Neb IH 1 ampul Q6HRT LETY Administration Famotidine 20 mg 05/18/21 22:00 05/20/21 09:05 Famotidine 20 Mg Tab PO 20 mg BID LETY Administration Heparin Sodium (Porcine) 5,000 unit 05/18/21 22:00 05/20/21 09:05 Heparin 5,000 Unit/1 Ml Vial SUB-Q 5,000 unit Q12HR LETY Administration Hydromorphone HCl 0.5 mg 05/18/21 21:45 Hydromorphone 1 Mg/1 Ml Inj IV Q3H PRN Pain , Severe (7-10) Cefepime HCl 1 gm in 100 mls @ 200 mls/hr 05/20/21 09:00 05/20/21 09:07 Cefepime/Ns 1 Gm/100 Ml IV 200 mls/hr Q8H LETY Administration Protocol Potassium Chloride 10 meq in 100 mls @ 100 mls/hr 05/20/21 09:00 05/20/21 10:24 Kcl 10meq/100ml IV 05/20/21 12:59 100 mls/hr Q1H LETY Administration Morphine Sulfate 2 mg 05/18/21 21:45 Morphine 2 Mg/1 Ml Inj IV Q4H PRN Pain, Moderate (4-6) Ondansetron HCl 4 mg 05/18/21 21:45 Ondansetron 4 Mg/2 Ml Inj IV Q8H PRN Nausea And Vomiting Potassium Chloride 40 meq 05/20/21 08:30 05/20/21 08:53 Potassium Chloride Er 20 Meq Tab PO 05/20/21 15:00 40 meq ONCE@0830 NR Administration Potassium Chloride 40 meq 05/20/21 12:30 Potassium Chloride Er 20 Meq Tab PO 05/20/21 15:00 ONCE@1230 NR Sodium Chloride 10 ml 05/18/21 22:00 05/20/21 09:49 Sodium Chloride 0.9% 10 Ml Flush Syringe IV 10 ml BID LETY Administration Sodium Chloride 10 ml 05/18/21 21:45 Sodium Chloride 0.9% 10 Ml Flush Syringe IV PRN PRN LINE FLUSH
--- NOTE | 2021-05-20 11:42 | Consultation ---
History of Present Illness - Reason for Consult Consult date: 05/20/21 abx management Requesting physician: KYRA FLETCHER - History of Present Illness The patient is a 66-year-old female with history of SVT was admitted to the hospital on 05/18/2021 with weakness, fever. She was also having a cough. She underwent cardioversion by EMS due to significant tachycardia/SVT. Upon admission, noted to have a fever of 103.2 F. UA showed significant pyuria, chest x-ray showed no acute findings. Blood cultures turned positive for GNR bacteremia. Infectious diseases was consulted for antibiotic management. She is currently on room air. Feeling better. She reports having hematuria as well as back spasms. Hematuria appears to be slowly improving. Review of Systems: General: fever HEENT: no new visual disturbance Respiratory: No cough, sputum, hemoptysis or shortness of breath Cardiovascular: No chest pain, syncope Gastrointestinal: No nausea, vomiting or diarrhea Genitourinary: No dysuria or hematuria Musculoskeletal: No new or worsening neck pain. Back spasms resolved Neurologic: No headaches, seizures Hematologic: No easy bruising or bleeding Endocrine: No night sweats or acute weight loss Skin: negative for rash, jaundice Psychiatric: No suicidal or homicidal ideation Past History Past Medical History: other (SVT) Past Surgical History: Other (Myomectomy) Social history: other (Never a smoker) Family history: hypertension Medications and Allergies Allergies Allergy/AdvReac Type Severity Reaction Status Date / Time No Known Allergies Allergy Verified 05/18/21 19:40 Home Medications Medication Instructions Recorded Confirmed Last Taken Type No Known Home Medications [No 05/18/21 05/18/21 Unknown History Reported Home Medications] Active Meds: Active Medications Acetaminophen (Acetaminophen 325 Mg Tab) 650 mg PO Q4H PRN PRN Reason: Pain MILD(1-3)/Fever >100.5/SHELBY Last Admin: 05/20/21 04:44 Dose: 650 mg Albuterol (Albuterol 2.5 Mg/3 Ml Nebu) 2.5 mg IH Q3HRT PRN PRN Reason: Shortness Of Breath Albuterol/Ipratropium (Ipratropium/Albuterol Sulfate 3 Ml Ampul.Neb) 1 ampul IH Q6HRT LETY Last Admin: 05/20/21 10:24 Dose: 1 ampul Famotidine (Famotidine 20 Mg Tab) 20 mg PO BID [facility] Last Admin: 05/20/21 09:05 Dose: 20 mg Heparin Sodium (Porcine) (Heparin 5,000 Unit/1 Ml Vial) 5,000 unit SUB-Q Q12HR [facility] Last Admin: 05/20/21 09:05 Dose: 5,000 unit Hydromorphone HCl (Hydromorphone 1 Mg/1 Ml Inj) 0.5 mg IV Q3H PRN PRN Reason: Pain , Severe (7-10) Cefepime HCl (Cefepime/Ns 1 Gm/100 Ml) 1 gm in 100 mls @ 200 mls/hr IV Q8H [facility]; Protocol Last Admin: 05/20/21 09:07 Dose: 200 mls/hr Potassium Chloride (Kcl 10meq/100ml) 10 meq in 100 mls @ 100 mls/hr IV Q1H [facility] Stop: 05/20/21 12:59 Last Admin: 05/20/21 10:24 Dose: 100 mls/hr Morphine Sulfate (Morphine 2 Mg/1 Ml Inj) 2 mg IV Q4H PRN PRN Reason: Pain, Moderate (4-6) Ondansetron HCl (Ondansetron 4 Mg/2 Ml Inj) 4 mg IV Q8H PRN PRN Reason: Nausea And Vomiting Potassium Chloride (Potassium Chloride Er 20 Meq Tab) 40 meq PO ONCE@0830 NR Stop: 05/20/21 15:00 Last Admin: 05/20/21 08:53 Dose: 40 meq Potassium Chloride (Potassium Chloride Er 20 Meq Tab) 40 meq PO ONCE@1230 NR Stop: 05/20/21 15:00 Sodium Chloride (Sodium Chloride 0.9% 10 Ml Flush Syringe) 10 ml IV BID [facility] Last Admin: 05/20/21 09:49 Dose: 10 ml Sodium Chloride (Sodium Chloride 0.9% 10 Ml Flush Syringe) 10 ml IV PRN PRN PRN Reason: LINE FLUSH Physical Examination - Physical Exam Narrative exam: Physical Exam: Constitutional: Alert, cooperative. No acute distress Head, Ears, Nose: Normocephalic, atraumatic. External ears, nose normal Eyes: Conjunctivae/corneas clear. No icterus. No ptosis. Neck: Supple, no meningeal signs Oral: no thrush Cardiovascular: S1, S2 + Respiratory: Good air entry, clear to auscultation bilaterally GI: Soft, non-tender; bowel sounds normal. No peritoneal signs Musculoskeletal: No pedal edema, no cyanosis. Skin: No rash or abscess Hem/Lymphatic: No palpable cervical or supraclavicular nodes. No lymphangitis Psych: Mood ok. Affect normal Neurological: Awake, alert, oriented. No gross abnormality - Constitutional Vitals: Vital Signs Temp Pulse Resp BP Pulse Ox 100.5 F H 102 H 20 107/58 97 05/20/21 04:30 05/20/21 10:24 05/20/21 10:24 05/20/21 04:30 05/20/21 10:00 Temperature -Last 24 Hours Temperature 100.5 F Temperature 100.1 F Temperature 100.5 F Temperature 99.6 F Results - Labs CBC & Chem 7: 05/20/21 06:51 05/20/21 06:51 Labs: Abnormal lab results 05/20/21 05/20/21 Range/Units 06:51 06:51 WBC 11.4 H (4.5-11.0) K/mm3 Hgb 9.5 L (10.1-14.3) gm/dl MCV 75 L (79-97) fl MCH 24 L (28-32) pg RDW 18.9 H (13.2-15.2) % Lymph % (Auto) 5.6 L (13.4-35.0) % [place] % (Auto) 10.3 H (0.0-7.3) % Lymph # (Auto) 0.6 L (1.2-5.4) K/mm3 [place] # (Auto) 1.2 H (0.0-0.8) K/mm3 Seg Neutrophils % 82.8 H (40.0-70.0) % Seg Neutrophils # 9.5 H (1.8-7.7) K/mm3 Potassium 2.9 L* (3.6-5.0) mmol/L Glucose 136 H (65-100) mg/dL Calcium 7.9 L (8.4-10.2) mg/dL - Imaging and Cardiology Chest x-ray: report reviewed, image reviewed (no pneumonia) Assessment and Plan Cultures: 05/18/2021 blood culture: GNR A/P: 66-year-old female with history of SVT was admitted to the hospital on 05/18/2021 with weakness, fever: #Sepsis, secondary to GNR bacteremia: Source is likely urinary tract infection. UA showed significant pyuria. Chest x-ray without obvious pneumonia. #Hematuria #Obesity Recs: -IV cefepime 1 g every 8 hours -Follow-up blood and urine cultures -Due to hematuria, will get CT without contrast to evaluate for renal stones/hyd ronephrosis. She did have renal stones around age 17 -Anticipate discharge on PO abx depending on cultures Haresh Tamayo MD, FACP, [facility] ([facility] O: [phone] F: [phone] C: [phone]
--- NOTE | 2021-05-20 13:31 | Cat Scan Report ---
CT ABDOMEN AND PELVIS WITHOUT IV CONTRAST INDICATION: eval for renal stones/hydronephrosis. COMPARISON: None available. TECHNIQUE: All CT scans at this facility use dose modulation, automated exposure control, iterative reconstructi on or weight based dosing, when appropriate, to reduce radiation dose to as low as reasonably achieva ble. FINDINGS: Lung Bases: No significant abnormality. Skeletal System: No acute abnormality. Arthritic changes noted at the pubic symphysis and SI joints. ABDOMEN: Liver: No significant abnormality. Gallbladder: No significant abnormality. Bile Ducts: No significant abnormality. Adrenals: No significant abnormality. Right Kidney: No significant abnormality. Left Kidney: No significant abnormality. Pancreas: Subcentimeter fat density focus in the pancreatic body on axial image 56 is likely invagina tion of peripancreatic fat. Spleen: No significant abnormality. Upper GI tract: No significant abnormality. Lymph Nodes: There are a few borderline-enlarged inferior left periaortic retroperitoneal nodes. The largest of these measures 1 cm in maximum short axis diameter on axial image 150. Aorta: No significant abnormality. Additional Findings: No significant abnormality. PELVIS: Colon: No acute abnormality. Urinary Bladder and Distal Ureters: No significant abnormality. Appendix: No significant abnormality. Lymph Nodes: No significant adenopathy. Additional Findings: Uterus is markedly enlarged and lobular with numerous calcifications consistent with fibroids. IMPRESSION: 1. Within the limitations of non contrast technique, no acute process in the abdomen or pelvis. 2. Markedly enlarged leiomyomatous uterus. 3. There are a few borderline enlarged inferior left periaortic retroperitoneal nodes. These are of u ncertain significance. 4. No urolithiasis or hydronephrosis. Signer Name: Aubrey Tierney MD Signed: 05/20/2021 1:26 PM Workstation Name: [employer]
[2021-05-21] MEDS: CEFEPIME/NS 1 GM/100 ML 1 GM/100 ML BAG IV SCH ×2 (00:58→09:05)
[2021-05-21] MEDS: IPRATROPIUM/ALBUTEROL SULFATE 3 ML AMPUL.NEB IH SCH ×4 (02:27→19:36)
[2021-05-21 06:22] LABS: Basophils # (Auto) 0.1 K/mm3 (0.0-0.1); Basophils % (Auto) 0.6 % (0.0-1.8); Eosinophils # (Auto) 0.3 K/mm3 (0.0-0.4); Eosinophils % (Auto) 2.8 % (0.0-4.3); Hematocrit 31.6 % (30.3-42.9); Lymphocytes # (Auto) 1.2 K/mm3 (1.2-5.4); Lymphocytes % (Auto) 12.7 % (13.4-35.0); Mean Corpuscular HGB Conc 32 % (30-34); Mean Corpuscular Volume 75 fl (79-97); Monocytes # (Auto) 1.3 K/mm3 (0.0-0.8); Monocytes % (Auto) 13.5 % (0.0-7.3); Platelet Count 169 K/mm3 (140-440); Red Blood Count 4.22 M/mm3 (3.65-5.03); Red Cell Distribution Width 19.1 % (13.2-15.2)
[2021-05-21 06:35] LABS: Blood Urea Nitrogen 7 mg/dL (7-17); Hemolysis Index 4
[2021-05-21 06:36] LABS: BUN/Creatinine Ratio 10
[2021-05-21] MEDS: HEPARIN 5,000 UNIT/1 ML VIAL SUB-Q SCH ×2 (09:05→21:43)
[2021-05-21] MEDS: FAMOTIDINE 20 MG TAB PO SCH ×2 (09:05→21:43)
--- NOTE | 2021-05-21 11:56 | Progress Note ---
Assessment and Plan Assessment and plan: #Sepsis secondary to acute cystitis with hematuria #Gram negative brent bacteremia #Leukocytosisimproving #Lactic acidosis-resolved Urinalysis revealing moderate leukocyte esterase, WBC 137, RBC >182, bacteria 1+ WBC 13.7--> 23.3--> 11.4 Lactic acid 3.0 -> 1.0 BCx 05/18 growing 06/10 GNR, C/S pending; repeat blood cultures collected Status post IV fluid resuscitation in ED with 2 L normal saline Discontinued azithromycin 500 mg daily and ceftriaxone 2 g daily; continue cefepime 1g Infectious disease consulted; assistance appreciated #Hypokalemia -K 2.9 -> 3.7 -will continue to replete and monitor #Abnormal uterine bleeding -patient endorsing vaginal bleeding over the last 3 years despite being postmenopausal -counseled patient about following up with Gynecology upon discharge #Obesity #Weight loss counseling #Exercise counseling -counseled patient about the importance of dietary changes, weight loss, and incorporating exercise -Time: +15 min #Advanced care planning -Disease education conducted, care plan discussed, diagnoses discussed, prognosis discussed, and patient acknowledges understanding with care plan -Time: +30 min #Discharge planning - Patient is pending improvement in vital status and final antibiotic choice - Case management has been made aware. - Discharge is tentatively 24-48 hours History Interval history: Documents overnight. Patient eating breakfast. Reports improvement in overall feeling. Updated about current care plan. No complaints at this time. Hospitalist Physical - Physical exam Narrative exam: GENERAL: Well-developed well-nourished. Sitting on the side of the bed in no acute distress. HEENT: Normocephalic. Atraumatic. NECK: Supple. CHEST/LUNGS: CTAB on room air HEART/CARDIOVASCULAR: RRR. No murmur, rubs or gallops appreciated. ABDOMEN: +BS. NT/ND. SKIN: No rashes noted. NEURO: No focal motor deficit. Follows all commands and is ambulatory. MUSCULOSKELETAL: No joint effusion EXTREMITIES: No cyanosis, clubbing or edema. PSYCH: Cooperative. - Constitutional Vitals: Temp Pulse Resp BP Pulse Ox 98.8 F 95 H 20 130/70 98 05/21/21 04:58 05/21/21 08:57 05/21/21 08:57 05/21/21 04:58 05/21/21 08:07 General appearance: Present: no acute distress, well-nourished, obese HEART Score - HEART Score Troponin: Troponin T 0.026 ng/mL (0.00-0.029) 05/18/21 19:37 Results - Labs CBC & Chem 7: 05/21/21 04:21 05/21/21 04:21 Labs: Laboratory Last Values WBC 9.5 K/mm3 (4.5-11.0) 05/21/21 04:21 RBC 4.22 M/mm3 (3.65-5.03) 05/21/21 04:21 Hgb 10.0 gm/dl (10.1-14.3) L 05/21/21 04:21 Hct 31.6 % (30.3-42.9) 05/21/21 04:21 MCV 75 fl (79-97) L 05/21/21 04:21 MCH 24 pg (28-32) L 05/21/21 04:21 MCHC 32 % (30-34) 05/21/21 04:21 RDW 19.1 % (13.2-15.2) H 05/21/21 04:21 Plt Count 169 K/mm3 (140-440) 05/21/21 04:21 Lymph % (Auto) 12.7 % (13.4-35.0) L 05/21/21 04:21 [place] % (Auto) 13.5 % (0.0-7.3) H 05/21/21 04:21 Eos % (Auto) 2.8 % (0.0-4.3) 05/21/21 04:21 Baso % (Auto) 0.6 % (0.0-1.8) 05/21/21 04:21 Lymph # (Auto) 1.2 K/mm3 (1.2-5.4) 05/21/21 04:21 [place] # (Auto) 1.3 K/mm3 (0.0-0.8) H 05/21/21 04:21 Eos # (Auto) 0.3 K/mm3 (0.0-0.4) 05/21/21 04:21 Baso # (Auto) 0.1 K/mm3 (0.0-0.1) 05/21/21 04:21 Add Manual Diff Complete 05/19/21 04:34 Total Counted 200 05/19/21 04:34 Seg Neutrophils % 70.4 % (40.0-70.0) H 05/21/21 04:21 Seg Neuts % (Manual) 92.0 % (40.0-70.0) H 05/19/21 04:34 Band Neutrophils % 3.0 % 05/19/21 04:34 Lymphocytes % (Manual) 1.5 % (13.4-35.0) L 05/19/21 04:34 Reactive Lymphs % (Man) 0 % 05/19/21 04:34 Monocytes % (Manual) 2.5 % (0.0-7.3) 05/19/21 04:34 Eosinophils % (Manual) 0.5 % (0.0-4.3) 05/19/21 04:34 Basophils % (Manual) 0.5 % (0.0-1.8) 05/19/21 04:34 Metamyelocytes % 0 % 05/19/21 04:34 Myelocytes % 0 % 05/19/21 04:34 Promyelocytes % 0 % 05/19/21 04:34 Blast Cells % 0 % 05/19/21 04:34 Nucleated RBC % Not Reportable 05/19/21 04:34 Seg Neutrophils # 6.7 K/mm3 (1.8-7.7) 05/21/21 04:21 Seg Neutrophils # Man 21.4 K/mm3 (1.8-7.7) H 05/19/21 04:34 Band Neutrophils # 0.7 K/mm3 05/19/21 04:34 Lymphocytes # (Manual) 0.3 K/mm3 (1.2-5.4) L 05/19/21 04:34 Abs React Lymphs (Man) 0.0 K/mm3 05/19/21 04:34 Monocytes # (Manual) 0.6 K/mm3 (0.0-0.8) 05/19/21 04:34 Eosinophils # (Manual) 0.1 K/mm3 (0.0-0.4) 05/19/21 04:34 Basophils # (Manual) 0.1 K/mm3 (0.0-0.1) 05/19/21 04:34 Metamyelocytes # 0.0 K/mm3 05/19/21 04:34 Myelocytes # 0.0 K/mm3 05/19/21 04:34 Promyelocytes # 0.0 K/mm3 05/19/21 04:34 Blast Cells # 0.0 K/mm3 05/19/21 04:34 WBC Morphology Not Reportable 05/19/21 04:34 Hypersegmented Neuts Not Reportable 05/19/21 04:34 Hyposegmented Neuts Not Reportable 05/19/21 04:34 Hypogranular Neuts Not Reportable 05/19/21 04:34 Smudge Cells Not Reportable 05/19/21 04:34 Toxic Granulation Not Reportable 05/19/21 04:34 Toxic Vacuolation Not Reportable 05/19/21 04:34 Dohle Bodies Not Reportable 05/19/21 04:34 Pelger-Huet Anomaly Not Reportable 05/19/21 04:34 Mario Rods Not Reportable 05/19/21 04:34 Platelet Estimate Consistent w auto 05/19/21 04:34 Clumped Platelets Not Reportable 05/19/21 04:34 Plt Clumps, EDTA Not Reportable 05/19/21 04:34 Large Platelets Not Reportable 05/19/21 04:34 Giant Platelets Not Reportable 05/19/21 04:34 Platelet Satelliting Not Reportable 05/19/21 04:34 Plt Morphology Comment Not Reportable 05/19/21 04:34 RBC Morphology Not Reportable 05/19/21 04:34 Dimorphic RBCs Not Reportable 05/19/21 04:34 Polychromasia Not Reportable 05/19/21 04:34 Hypochromasia Not Reportable 05/19/21 04:34 Poikilocytosis Not Reportable 05/19/21 04:34 Anisocytosis 1+ 05/19/21 04:34 Microcytosis Not Reportable 05/19/21 04:34 Macrocytosis Not Reportable 05/19/21 04:34 Spherocytes Not Reportable 05/19/21 04:34 Pappenheimer Bodies Not Reportable 05/19/21 04:34 Sickle Cells Not Reportable 05/19/21 04:34 Target Cells Not Reportable 05/19/21 04:34 Tear Drop Cells Not Reportable 05/19/21 04:34 Ovalocytes Not Reportable 05/19/21 04:34 Helmet Cells Not Reportable 05/19/21 04:34 [place] Bodies Not Reportable 05/19/21 04:34 [place] Rings Not Reportable 05/19/21 04:34 [place] Cells Not Reportable 05/19/21 04:34 Bite Cells Not Reportable 05/19/21 04:34 Crenated Cell Not Reportable 05/19/21 04:34 Elliptocytes Not Reportable 05/19/21 04:34 Acanthocytes (Spur) Not Reportable 05/19/21 04:34 Rouleaux Not Reportable 05/19/21 04:34 Hemoglobin C Crystals Not Reportable 05/19/21 04:34 Schistocytes Not Reportable 05/19/21 04:34 Malaria parasites Not Reportable 05/19/21 04:34 Adam Bodies Not Reportable 05/19/21 04:34 Hem Pathologist Commnt No 05/19/21 04:34 PT 14.1 Sec. (12.2-14.9) 05/18/21 19:37 INR 0.98 (0.87-1.13) 05/18/21 19:37 Sodium 138 mmol/L (137-145) 05/21/21 04:21 Potassium 3.7 mmol/L (3.6-5.0) D 05/21/21 04:21 Chloride 104.1 mmol/L (98-107) 05/21/21 04:21 Carbon Dioxide 21 mmol/L (22-30) L 05/21/21 04:21 Anion Gap 17 mmol/L 05/21/21 04:21 BUN 7 mg/dL (7-17) 05/21/21 04:21 Creatinine 0.7 mg/dL (0.6-1.2) 05/21/21 04:21 Estimated GFR > 60 ml/min 05/21/21 04:21 BUN/Creatinine Ratio 10 % 05/21/21 04:21 Glucose 105 mg/dL (65-100) H 05/21/21 04:21 Lactic Acid 1.00 mmol/L (0.7-2.0) 05/20/21 11:47 Calcium 8.0 mg/dL (8.4-10.2) L 05/21/21 04:21 Magnesium 1.50 mg/dL (1.7-2.3) L 05/18/21 19:37 Total Creatine Kinase 101 units/L (30-135) 05/18/21 19:37 CK-MB (CK-2) 1.4 ng/mL (0.0-4.0) 05/18/21 19:37 CK-MB (CK-2) Rel Index 1.3 (0-4) 05/18/21 19:37 Troponin T 0.026 ng/mL (0.00-0.029) 05/18/21 19:37 NT-Pro-B Natriuret Pep 65.93 pg/mL (0-900) 05/18/21 19:37 TSH 2.130 mlU/mL (0.270-4.200) 05/18/21 19:37 Free T4 1.39 ng/dL (0.76-1.46) 05/18/21 19:37 Urine Color Red (Yellow) 05/18/21 21:53 Urine Turbidity Cloudy (Clear) 05/18/21 21:53 Urine pH 5.0 (5.0-7.0) 05/18/21 21:53 Ur Specific [place] 1.015 (1.003-1.030) 05/18/21 21:53 Urine Protein 100 mg/dl mg/dL (Negative) 05/18/21 21:53 Urine Glucose (UA) Neg mg/dL (Negative) 05/18/21 21:53 Urine Ketones Neg mg/dL (Negative) 05/18/21 21:53 Urine Blood Mod (Negative) 05/18/21 21:53 Urine Nitrite Neg (Negative) 05/18/21 21:53 Urine Bilirubin Neg (Negative) 05/18/21 21:53 Urine Urobilinogen < 2.0 mg/dL (<2.0) 05/18/21 21:53 Ur Leukocyte Esterase Mod (Negative) 05/18/21 21:53 Urine WBC (Auto) 137.0 /HPF (0.0-6.0) H 05/18/21 21:53 Urine RBC (Auto) > 182.0 /HPF (0.0-6.0) 05/18/21 21:53 U Epithel Cells (Auto) 1.0 /HPF (0-13.0) 05/18/21 21:53 Urine Bacteria (Auto) 1+ /HPF (Negative) 05/18/21 21:53 Urine Mucus Few /HPF 05/18/21 21:53 Microbiology: Microbiology 05/21/21 08:52 Peripheral/Venous Blood Culture - Preliminary Culture in Progress 05/21/21 08:52 Peripheral/Venous Blood Culture - Preliminary Culture in Progress 05/20/21 Unknown Urine,Clean Catch Urine Culture - Preliminary 05/18/21 19:37 Peripheral/Venous Blood Culture - Preliminary Gram Negative Brent 05/18/21 20:29 Peripheral/Venous Blood Culture - Preliminary Gram Negative Brent Pollard/IV: Voiding Method Toilet Active Medications - Current Medications Current Medications: Generic Name Dose Route Start Last Admin Trade Name Freq PRN Reason Stop Dose Admin Acetaminophen 650 mg 05/18/21 21:45 05/20/21 04:44 Acetaminophen 325 Mg Tab PO 650 mg Q4H PRN Administration Pain MILD(1-3)/Fever >100.5/SHELBY Albuterol/Ipratropium 1 ampul 05/19/21 03:00 05/21/21 08:56 Ipratropium/Albuterol Sulfate 3 Ml Ampul.Neb IH 1 ampul Q6HRT LETY Administration Famotidine 20 mg 05/18/21 22:00 05/21/21 09:05 Famotidine 20 Mg Tab PO 20 mg BID LETY Administration Heparin Sodium (Porcine) 5,000 unit 05/18/21 22:00 05/21/21 09:05 Heparin 5,000 Unit/1 Ml Vial SUB-Q 5,000 unit Q12HR LETY Administration Hydromorphone HCl 0.5 mg 05/18/21 21:45 Hydromorphone 1 Mg/1 Ml Inj IV Q3H PRN Pain , Severe (7-10) Cefepime HCl 1 gm in 100 mls @ 200 mls/hr 05/20/21 09:00 05/21/21 09:05 Cefepime/Ns 1 Gm/100 Ml IV 200 mls/hr Q8H LETY Administration Protocol Morphine Sulfate 2 mg 05/18/21 21:45 Morphine 2 Mg/1 Ml Inj IV Q4H PRN Pain, Moderate (4-6) Ondansetron HCl 4 mg 05/18/21 21:45 Ondansetron 4 Mg/2 Ml Inj IV Q8H PRN Nausea And Vomiting Sodium Chloride 10 ml 05/18/21 22:00 05/21/21 09:06 Sodium Chloride 0.9% 10 Ml Flush Syringe IV 10 ml BID LETY Administration Sodium Chloride 10 ml 05/18/21 21:45 Sodium Chloride 0.9% 10 Ml Flush Syringe IV PRN PRN LINE FLUSH
--- NOTE | 2021-05-21 13:20 | Progress Note ---
Assessment and Plan Cultures: 05/18/2021 blood culture: E.coli Urine with <10K growth A/P: 66-year-old female with history of SVT was admitted to the hospital on 05/18/2021 with weakness, fever: #Sepsis, secondary to E.coli bacteremia: Source is likely urinary tract infection. UA showed significant pyuria. Chest x-ray without obvious pneumonia. CT without stones or hydronephrosis. #Hematuria #Obesity Recs: -switched to IV Ceftriaxone 2 gm daily -OK for discharge tomorrow on PO Cefdinir 300 mg BID x 7 days. Given clinical improvement, no need to wait for repeat blood cultures to be negative. Haresh Tamayo MD, FACP, [facility] O: [phone] F: [phone] C: [phone] Subjective Date of service: 05/21/21 Interval history: Feeling better. No fever. No nausea, vomiting. Tolerating abx. Objective - Exam Narrative Exam: Physical Exam: Constitutional: Alert, cooperative. No acute distress Head, Ears, Nose: Normocephalic, atraumatic. External ears, nose normal Eyes: Conjunctivae/corneas clear. No icterus. No ptosis. Neck: Supple, no meningeal signs Cardiovascular: S1, S2 + Respiratory: Good air entry, clear to auscultation bilaterally GI: Soft, non-tender; bowel sounds normal. No peritoneal signs Musculoskeletal: No pedal edema, no cyanosis. Skin: No rash or abscess Hem/Lymphatic: No palpable cervical or supraclavicular nodes. No lymphangitis Psych: Mood ok. Affect normal Neurological: Awake, alert, oriented. No gross abnormality - Constitutional Vitals: Vital Signs Temp Pulse Resp BP Pulse Ox 98.2 F 95 H 16 112/66 98 05/21/21 11:30 05/21/21 11:30 05/21/21 11:30 05/21/21 11:30 05/21/21 11:30 Temperature -Last 24 Hours Temperature 98.2 F Temperature 98.8 F Temperature 98.9 F Temperature 98.2 F - Labs CBC & Chem 7: 05/21/21 04:21 05/21/21 04:21 Labs: Abnormal lab results 05/21/21 05/21/21 Range/Units 04:21 04:21 Hgb 10.0 L (10.1-14.3) gm/dl MCV 75 L (79-97) fl MCH 24 L (28-32) pg RDW 19.1 H (13.2-15.2) % Lymph % (Auto) 12.7 L (13.4-35.0) % [place] % (Auto) 13.5 H (0.0-7.3) % [place] # (Auto) 1.3 H (0.0-0.8) K/mm3 Seg Neutrophils % 70.4 H (40.0-70.0) % Carbon Dioxide 21 L (22-30) mmol/L Glucose 105 H (65-100) mg/dL Calcium 8.0 L (8.4-10.2) mg/dL
[2021-05-21] MEDS ORDERED: cefTRIAXone/NS 2 GM/100 ML 2 GM/100 ML BAG IV SCH (14:00)
[2021-05-21] MEDS ORDERED: guaiFENesin 200 MG TAB PO PRN (22:26)
[2021-05-21] MEDS: guaiFENesin 100 MG/5 ML ORAL LIQD PO PRN (23:15)
[2021-05-22] MEDS: IPRATROPIUM/ALBUTEROL SULFATE 3 ML AMPUL.NEB IH SCH ×3 (04:15→13:48)
[2021-05-22] MEDS: guaiFENesin 100 MG/5 ML ORAL LIQD PO PRN (05:34)
--- NOTE | 2021-05-22 09:01 | Progress Note ---
Assessment and Plan Cultures: 05/18/2021 blood culture: E.coli Urine with <10K growth 05/22/2021 blood culture: no growth so far A/P: 66-year-old female with history of SVT was admitted to the hospital on 05/18/2021 with weakness, fever: #Sepsis, secondary to E.coli bacteremia: Source is likely urinary tract infection. UA showed significant pyuria. Chest x-ray without obvious pneumonia. CT without stones or hydronephrosis. #Hematuria #Obesity Recs: -OK for discharge tomorrow on PO Cefdinir 300 mg BID x 7 days. Given clinical improvement, no need to wait for repeat blood cultures to be negative. Haresh Tamayo MD, FACP, [facility] O: [phone] F: [phone] C: [phone] Subjective Date of service: 05/22/21 Interval history: Feels well. No fever. No nausea, vomiting. Tolerating abx. No complaints. Objective - Exam Narrative Exam: Physical Exam: Constitutional: Alert, cooperative. No acute distress Head, Ears, Nose: Normocephalic, atraumatic. External ears, nose normal Eyes: Conjunctivae/corneas clear. No icterus. No ptosis. Neck: Supple, no meningeal signs Cardiovascular: S1, S2 + Respiratory: Good air entry, clear to auscultation bilaterally GI: Soft, non-tender; bowel sounds normal. No peritoneal signs Musculoskeletal: No pedal edema, no cyanosis. Skin: No rash or abscess Hem/Lymphatic: No palpable cervical or supraclavicular nodes. No lymphangitis Psych: Mood ok. Affect normal Neurological: Awake, alert, oriented. No gross abnormality - Constitutional Vitals: Vital Signs Temp Pulse Resp BP Pulse Ox 99.1 F 93 H 17 119/70 97 05/22/21 04:26 05/22/21 08:46 05/22/21 08:46 05/22/21 04:26 05/22/21 08:00 Temperature -Last 24 Hours Temperature 99.1 F Temperature 98.7 F Temperature 97.8 F Temperature 98.2 F - Labs CBC & Chem 7: 05/21/21 04:21 05/21/21 04:21
[2021-05-22] MEDS: FAMOTIDINE 20 MG TAB PO SCH (09:31)
[2021-05-22] MEDS: HEPARIN 5,000 UNIT/1 ML VIAL SUB-Q SCH (09:32)
--- NOTE | 2021-05-22 11:23 | Discharge Summary ---
Providers - Providers Date of Admission: 05/18/21 21:45 Date of discharge: 05/22/21 Attending physician: RUBIO FERREIRA MD 05/20/21 11:17 Consult to Physician [CONS] Routine Comment: Consulting Provider: LOUIE WHITE Physician Instructions: Reason For Exam: antibiotic management Primary care physician: DORIS SLADE Hospitalization Reason for admission: Sepsis Condition: Fair Hospital course: 66-year-old female who presented with complaint of weakness. Was found to be tachycardic while in the EMS. Rhythm suspicious for PSVT. She was cardioverted in route. She was admitted for sepsis and further work-up. CT of the abdomen pelvis was unremarkable for acute findings. Blood cultures were collected and later positive for E. coli. She was treated with empiric antibiotics. She had marked improvement in her labs, vitals and overall clinically. Repeat blood cultures were negative for growth. She was discharged home with a course of cefdinir. Disposition: HOME / SELF CARE / HOMELESS Final Discharge Diagnosis (Prints w/discharge instructions): Sepsis secondary to acute cystitis with hematuria. E. coli bacteremia. Lactic acidosis. Hypokalemia. Abnormal uterine bleeding. Obesity Time spent for discharge: 40 minutes Core Measure Documentation - Palliative Care Palliative Care/ Comfort Measures: Not Applicable - Core Measures Any of the following diagnoses?: none Exam - Physical Exam Narrative exam: GENERAL: Well-developed well-nourished. Sitting on the side of the bed in no acute distress. HEENT: Normocephalic. Atraumatic. NECK: Supple. CHEST/LUNGS: CTAB on room air HEART/CARDIOVASCULAR: RRR. No murmur, rubs or gallops appreciated. ABDOMEN: +BS. NT/ND. SKIN: No rashes noted. NEURO: No focal motor deficit. Follows all commands and is ambulatory. MUSCULOSKELETAL: No joint effusion EXTREMITIES: No cyanosis, clubbing or edema. PSYCH: Cooperative. - Constitutional Vitals: Temp Pulse Resp BP Pulse Ox 99.1 F 93 H 17 119/70 97 05/22/21 04:26 05/22/21 08:46 05/22/21 08:46 05/22/21 04:26 05/22/21 08:00 Plan Care Plan Goals: Please follow with your primary care doctor. We have prescribed you an antibiotic called cefdinir you will take twice a day. Please take until complete to fully treat your infection. Follow up with: DORIS SLADE APRN-BC [Primary Care Provider] - 7 Days Prescriptions: Cefdinir 300 mg PO BID 7 Days #14 cap
[2021-05-22 13:11] VITALS: BP 121/86
== END 2021-05-22 13:41 | disposition home or self-care (01) | DRG 872 ==
LOC: ED 19:12 → 3A 21:45
PROVIDERS: ADMIT Hospitalist; ATTEND Student in an Organized Health Care Education/Training Program
DX: A41.51 Sepsis due to Escherichia coli [E. coli] (principal); N30.01 Acute cystitis with hematuria; Z20.822 Contact with and (suspected) exposure to COVID-19; E66.9 Obesity, unspecified; E87.6 Hypokalemia; N93.9 Abnormal uterine and vaginal bleeding, unspecified; Z82.49 Family history of ischemic heart disease and other diseases of the circulatory system; Z68.29 Body mass index [BMI] 29.0-29.9, adult
CPT/HCPCS: 36415; 71045; 74176; 80048; 81001; 82140; 82550; 82553; 83735; 83880; 84439; 84443; 84484; 85007; 85025; 85610; 87040; 87076; 87086; 87186; 93005; 94640; G0378; J7070; Q0162; J0456; J0692; J0696; J1644; J3480; J7030